=== PATIENT | female | born 1995 | race Caucasian/White ===

== ENCOUNTER → 2018-06-12 | Outpatient (CLI) | payer OTHER ==
[~2018-06-12] MED LIST: ANTIDEPRESSANT PO; BACTRIM DS 8001 TA1 PO; CLARITIN10 MG PO; FLONASE ALLERG9.9 ML NAS; MOTRIN400 MG PO; MOTRIN800 MG PO; NAPROSYN500 MG PO; NAPROXEN375 MG PO; NKHM; NORCO 325 MG-51 TAB PO; NORCO 5-325 TA1 EACH PO; PHENERGAN25 MG RC; PREDNISONE10 MG PO; PYRIDIUM200 MG PO; ROBITUSSIN AC 110 ML PO; ZANTAC150 MG PO; ZOFRAN ODT4 MG SL; ZOLOFT50 MG PO; Zofran4 MG PO
== END | disposition home or self-care (01) ==
LOC: RAD 16:04
DX: M54.9 Dorsalgia, unspecified (principal); M54.5 Low back pain

== ENCOUNTER 2018-11-25 18:47 | Emergency (ER) | payer OTHER ==
[~2018-11-25] VITALS: Ht 149.8 cm; Wt 46.3 kg
[2018-11-25 18:49] VITALS: BP 114/82
[2018-11-25 19:42] LABS: BASO # 0.1 10*3/uL (0.0-0.1); EOS % 0.5 % (1.0-4.0); HEMATOCRIT 40.1 % (37.0-47.0); HEMOGLOBIN 13.1 g/dl (12.0-16.0); LYMPH # 0.7 10*3/uL (1.3-4.4); LYMPH % 12.3 % (27.0-41.0); MEAN CELL VOLUME 90.3 fl (81.0-99.0); MEAN CORPUSCULAR HGB 29.5 pg (27.0-31.0); MEAN CORPUSCULAR HGB CONC 32.7 g/dl (33.0-37.0); MEAN PLATELET VOLUME 11.7 fl (9.6-12.3); MONO # 0.5 10*3/uL (0.1-1.0); MONO % 8.7 % (3.0-9.0); NEUT # 4.5 10*3/uL (2.3-7.9); NEUT % 77.2 % (47.0-73.0); PLATELET COUNT AUTOMATED 217 10*3/uL (130-400); RED BLOOD COUNT 4.44 10*6/uL (4.10-5.10); RED CELL DISTRI WIDTH 12.8 % (0-14.5); WHITE BLOOD COUNT 5.8 10*3/uL (4.8-10.8)
[2018-11-25 19:43] LABS: BILIRUBIN NEGATIVE (NEGATIVE); BLOOD TRACE-INTACT (NEGATIVE); CLARITY SL CLOUDY (CLEAR); COLOR YELLOW (YELLOW); GLUCOSE NEGATIVE (NEGATIVE); KETONE NEGATIVE (NEGATIVE); LEUKO ESTERASE 1+ (NEGATIVE); NITRITE NEGATIVE (NEGATIVE); SPECIFIC GRAVITY >= 1.030 (1.005-1.030)
[2018-11-25 19:55] LABS: BACTERIA 2+
[2018-11-25 19:58] LABS: ALKALINE PHOSPHATASE 64 U/L (45-117); BUN 10 mg/dl (7-24); CHLORIDE 110 mmol/L (98-107); CREATININE 0.73 mg/dL (0.55-1.02); LIPASE 343 U/L (73-393); POTASSIUM 3.3 mmol/L (3.5-5.1); SGOT/AST 11 IU/L (3-35); SGPT/ALT 22 U/L (12-78); SODIUM 142 mmol/L (136-145); TOTAL PROTEIN 7.7 gm/dL (6.4-8.2)
[2018-11-25] MEDS ORDERED: ZOFRAN4 MG PO (22:35)
[2019-01-05] MEDS ORDERED: ZOFRAN4 MG PO (11:57)
== END 2018-11-25 21:39 | disposition home or self-care (01) ==
LOC: ED 18:47
PROVIDERS: Physician Assistant
DX: K52.9 Noninfective gastroenteritis and colitis, unspecified (principal)

== ENCOUNTER 2019-07-05 17:03 | Emergency (ER) | payer OTHER ==
[~2019-07-05] VITALS: Ht 160 cm; Wt 48.1 kg
[~2019-07-05 17:03] MED LIST changes: +ZOFRAN4 MG PO
[2019-07-05 17:06] VITALS: BP 120/70
== END 2019-07-05 19:33 | disposition home or self-care (01) ==
LOC: ED 17:03
DX: S40.011A Contusion of right shoulder, initial encounter (principal); W01.0XXA Fall on same level from slipping, tripping and stumbling without subsequent striking against object, initial encounter; Y93.89 Activity, other specified; Y92.098 Other place in other non-institutional residence as the place of occurrence of the external cause; Y99.8 Other external cause status

== ENCOUNTER 2019-08-26 17:16 | Emergency (ER) | payer OTHER ==
[~2019-08-26] VITALS: Ht 154.9 cm; Wt 47.6 kg
[2019-08-26 17:18] VITALS: BP 113/83
[2019-08-26] MEDS ORDERED: ANAPROX DS550 MG PO (18:49)
== END 2019-08-26 18:59 | disposition home or self-care (01) ==
LOC: ED 17:16
DX: M76.52 Patellar tendinitis, left knee (principal); X50.1XXA Overexertion from prolonged static or awkward postures, initial encounter; Y93.89 Activity, other specified; Y92.89 Other specified places as the place of occurrence of the external cause; Y99.8 Other external cause status

== ENCOUNTER 2019-10-23 11:52 | Emergency (ER) | payer OTHER ==
[~2019-10-23] VITALS: Ht 162.5 cm; Wt 46.7 kg
[~2019-10-23 11:52] MED LIST changes: +ANAPROX DS550 MG PO
[2019-10-23 11:59] VITALS: BP 107/76
[2019-10-23] MEDS ORDERED: IBU800 MG PO (13:50)
== END 2019-10-23 14:00 | disposition home or self-care (01) ==
LOC: ED 11:52
DX: S43.401A Unspecified sprain of right shoulder joint, initial encounter (principal); S20.211A Contusion of right front wall of thorax, initial encounter; Z79.899 Other long term (current) drug therapy; W00.2XXA Other fall from one level to another due to ice and snow, initial encounter; Y93.89 Activity, other specified; Y92.89 Other specified places as the place of occurrence of the external cause; Y99.8 Other external cause status

== ENCOUNTER 2019-10-30 09:57 | Emergency (ER) | payer OTHER ==
[~2019-10-30] VITALS: Ht 160 cm; Wt 47.2 kg
[~2019-10-30 09:57] MED LIST changes: +IBU800 MG PO
[2019-10-30 10:01] VITALS: BP 101/81
[2019-10-30 10:30] LABS: BASO # 0.1 10*3/uL (0.0-0.1); BASO % 1.1 % (0.0-1.0); EOS # 0.1 10*3/uL (0.0-0.4); HEMATOCRIT 38.9 % (37.0-47.0); LYMPH # 2.2 10*3/uL (1.3-4.4); LYMPH % 47.6 % (27.0-41.0); MEAN CORPUSCULAR HGB 30.1 pg (27.0-31.0); MEAN CORPUSCULAR HGB CONC 33.4 g/dl (33.0-37.0); MEAN PLATELET VOLUME 11.2 fl (9.6-12.3); MONO # 0.4 10*3/uL (0.1-1.0); MONO % 9.1 % (3.0-9.0); NEUT # 1.8 10*3/uL (2.3-7.9); PLATELET COUNT AUTOMATED 219 10*3/uL (130-400); RED BLOOD COUNT 4.32 10*6/uL (4.10-5.10); RED CELL DISTRI WIDTH 12.6 % (0-14.5); WHITE BLOOD COUNT 4.6 10*3/uL (4.8-10.8)
[2019-10-30 10:48] LABS: ALKALINE PHOSPHATASE 51 U/L (45-117); BUN 11 mg/dl (7-24); CHLORIDE 112 mmol/L (98-107); CREATININE 0.89 mg/dL (0.55-1.02); LIPASE 237 U/L (73-393); POTASSIUM 3.7 mmol/L (3.5-5.1); SGOT/AST 12 IU/L (3-35); SGPT/ALT 16 U/L (12-78); SODIUM 141 mmol/L (136-145); TOTAL PROTEIN 7.2 gm/dL (6.4-8.2)
[2019-10-30 11:35] LABS: BILIRUBIN NEGATIVE (NEGATIVE); BLOOD NEGATIVE (NEGATIVE); CLARITY SL CLOUDY (CLEAR); COLOR YELLOW (YELLOW); GLUCOSE NEGATIVE (NEGATIVE); KETONE NEGATIVE (NEGATIVE); LEUKO ESTERASE 1+ (NEGATIVE); NITRITE NEGATIVE (NEGATIVE); PH 5.5 (5.0-9.0); SPECIFIC GRAVITY 1.015 (1.005-1.030); UROBILINOGEN 0.2 E.U./dl (0.2-1.0)
[2019-10-30 11:48] LABS: BACTERIA 3+
[2019-10-30] MEDS ORDERED: ZOFRAN4 MG PO (13:55)
== END 2019-10-30 13:59 | disposition home or self-care (01) ==
LOC: ED 09:57
PROVIDERS: Nurse Practitioner Family
DX: A08.4 Viral intestinal infection, unspecified (principal); R11.2 Nausea with vomiting, unspecified; R19.7 Diarrhea, unspecified; Z79.899 Other long term (current) drug therapy

== ENCOUNTER 2019-11-29 13:25 | Emergency (ER) | payer OTHER ==
[~2019-11-29] VITALS: Ht 162.5 cm; Wt 47.6 kg
[2019-11-29 13:38] VITALS: BP 116/84
[2019-11-29] MEDS ORDERED: IBUPROFEN600 MG PO (15:29)
== END 2019-11-29 15:30 | disposition home or self-care (01) ==
LOC: ED 13:25
DX: S40.011A Contusion of right shoulder, initial encounter (principal); W01.0XXA Fall on same level from slipping, tripping and stumbling without subsequent striking against object, initial encounter; Y93.89 Activity, other specified; Y92.89 Other specified places as the place of occurrence of the external cause; Y99.8 Other external cause status

== ENCOUNTER 2020-05-12 15:09 | Emergency (ER) | payer OTHER ==
[~2020-05-12] VITALS: Ht 160 cm; Wt 46.3 kg
[~2020-05-12 15:09] MED LIST changes: +IBUPROFEN600 MG PO
[2020-05-12 15:23] VITALS: BP 121/67
== END 2020-05-12 17:58 | disposition home or self-care (01) ==
LOC: ED 15:09
DX: S60.221A Contusion of right hand, initial encounter (principal); S20.211A Contusion of right front wall of thorax, initial encounter; W01.0XXA Fall on same level from slipping, tripping and stumbling without subsequent striking against object, initial encounter; Y93.89 Activity, other specified; Y92.89 Other specified places as the place of occurrence of the external cause; Y99.8 Other external cause status

== ENCOUNTER → 2020-06-26 | Outpatient (CLI) | payer OTHER ==
[2020-06-26 12:19] LABS: BASO # 0.1 10*3/uL (0.0-0.1); EOS # 0.1 10*3/uL (0.0-0.4); EOS % 1.6 % (1.0-4.0); HEMATOCRIT 37.4 % (37.0-47.0); LYMPH # 1.9 10*3/uL (1.3-4.4); LYMPH % 38.7 % (27.0-41.0); MEAN CORPUSCULAR HGB CONC 32.6 g/dl (33.0-37.0); MEAN PLATELET VOLUME 11.2 fl (9.6-12.3); MONO # 0.4 10*3/uL (0.1-1.0); MONO % 7.4 % (3.0-9.0); NEUT # 2.6 10*3/uL (2.3-7.9); NEUT % 50.9 % (47.0-73.0); PLATELET COUNT AUTOMATED 295 10*3/uL (130-400); RED CELL DISTRI WIDTH 13.3 % (0-14.5)
[2020-06-26 12:50] LABS: ALBUMIN 4.3 gm/dl (3.1-4.5); ALKALINE PHOSPHATASE 51 U/L (45-117); BUN 10 mg/dl (7-24); CHLORIDE 110 mmol/L (98-107); CHOLESTEROL 149 mg/dL (<200); CREATININE 0.78 mg/dL (0.55-1.02); FREE T4 0.97 ng/dl (0.76-1.46); HDL CHOLESTEROL 39 mg/dl (40-60); LDL CHOLESTEROL 88 mg/dL (9-159); POTASSIUM 3.6 mmol/L (3.5-5.1); SGOT/AST 11 IU/L (3-35); SGPT/ALT 22 U/L (12-78); SODIUM 139 mmol/L (136-145); TOTAL PROTEIN 7.7 gm/dL (6.4-8.2); TRIGLYCERIDES 111 mg/dl (<150); VLDL CHOLESTEROL 22 mg/dL (6-40)
== END | disposition home or self-care (01) ==
LOC: LAB 12:03
PROVIDERS: Internal Medicine
DX: D52.9 Folate deficiency anemia, unspecified (principal); D51.9 Vitamin B12 deficiency anemia, unspecified; R79.82 Elevated C-reactive protein (CRP); R79.89 Other specified abnormal findings of blood chemistry; R53.81 Other malaise; E55.9 Vitamin D deficiency, unspecified

== ENCOUNTER 2020-06-29 16:32 | Emergency (ER) | payer OTHER ==
[~2020-06-29] VITALS: Wt 47.2 kg
[2020-06-29 16:43] VITALS: BP 116/74
[2020-06-29 17:02] LABS: BASO # 0.1 10*3/uL (0.0-0.1); BASO % 0.8 % (0.0-1.0); EOS # 0.1 10*3/uL (0.0-0.4); EOS % 1.3 % (1.0-4.0); HEMATOCRIT 39.1 % (37.0-47.0); LYMPH % 33.7 % (27.0-41.0); MEAN CELL VOLUME 89.1 fl (81.0-99.0); MEAN CORPUSCULAR HGB 29.4 pg (27.0-31.0); MEAN PLATELET VOLUME 11.2 fl (9.6-12.3); MONO # 0.3 10*3/uL (0.1-1.0); MONO % 5.6 % (3.0-9.0); NEUT # 3.5 10*3/uL (2.3-7.9); NEUT % 58.4 % (47.0-73.0); PLATELET COUNT AUTOMATED 295 10*3/uL (130-400); RED BLOOD COUNT 4.39 10*6/uL (4.10-5.10); RED CELL DISTRI WIDTH 13.1 % (0-14.5)
[2020-06-29 17:21] LABS: ALBUMIN 4.9 gm/dl (3.1-4.5); ALKALINE PHOSPHATASE 55 U/L (45-117); BUN 12 mg/dl (7-24); CHLORIDE 110 mmol/L (98-107); CREATININE 0.85 mg/dL (0.55-1.02); LIPASE 181 U/L (73-393); POTASSIUM 3.1 mmol/L (3.5-5.1); SGOT/AST 13 IU/L (3-35); SGPT/ALT 27 U/L (12-78); SODIUM 137 mmol/L (136-145); TOTAL PROTEIN 8.3 gm/dL (6.4-8.2)
[2020-06-29] MEDS ORDERED: ZOFRAN4 MG PO (17:39)
[2020-06-29 19:12] LABS: CLARITY CLEAR (CLEAR); COLOR YELLOW (YELLOW)
[2020-06-29 19:14] LABS: BILIRUBIN NEGATIVE (NEGATIVE); BLOOD 1+ (NEGATIVE); GLUCOSE NEGATIVE (NEGATIVE); KETONE NEGATIVE (NEGATIVE); SPECIFIC GRAVITY 1.015 (1.005-1.030); UROBILINOGEN 0.2 E.U./dl (0.2-1.0)
[2020-06-29 19:16] LABS: LEUKO ESTERASE 1+ (NEGATIVE); NITRITE NEGATIVE (NEGATIVE)
[2020-06-29 19:36] LABS: BACTERIA 2+
[2020-06-29] MEDS ORDERED: KEFLEX500 M1 PO (19:57)
== END 2020-06-29 20:50 | disposition home or self-care (01) ==
LOC: ED 16:32
PROVIDERS: Nurse Practitioner Family
DX: N39.0 Urinary tract infection, site not specified (principal); E87.6 Hypokalemia; A08.4 Viral intestinal infection, unspecified; F32.9 Major depressive disorder, single episode, unspecified; Z79.899 Other long term (current) drug therapy

== ENCOUNTER 2020-10-02 11:43 | Emergency (ER) | payer OTHER ==
[~2020-10-02] VITALS: Ht 157.4 cm; Wt 47.6 kg
[~2020-10-02 11:43] MED LIST changes: +KEFLEX500 M1 PO
[2020-10-02 12:15] VITALS: BP 119/79
[2020-10-02 15:00] LABS: BASO % 0.5 % (0.0-1.0); EOS % 0.6 % (1.0-4.0); HEMATOCRIT 37.3 % (37.0-47.0); LYMPH # 1.5 10*3/uL (1.3-4.4); LYMPH % 24.3 % (27.0-41.0); MEAN CELL VOLUME 88.6 fl (81.0-99.0); MEAN CORPUSCULAR HGB 29.2 pg (27.0-31.0); MEAN PLATELET VOLUME 11.6 fl (9.6-12.3); MONO # 0.4 10*3/uL (0.1-1.0); MONO % 6.3 % (3.0-9.0); NEUT # 4.2 10*3/uL (2.3-7.9); PLATELET COUNT AUTOMATED 245 10*3/uL (130-400); RED BLOOD COUNT 4.21 10*6/uL (4.10-5.10); RED CELL DISTRI WIDTH 12.9 % (0-14.5); WHITE BLOOD COUNT 6.2 10*3/uL (4.8-10.8)
[2020-10-02 15:14] LABS: ACT PARTIAL THROMBO TIME 28.2 SECONDS (20.0-32.1); INTERNATIONAL NORM RATIO 1.1 (2.0-3.5)
[2020-10-02 15:15] LABS: ALBUMIN 4.2 gm/dl (3.1-4.5); ALKALINE PHOSPHATASE 51 U/L (45-117); BUN 9 mg/dl (7-24); CHLORIDE 115 mmol/L (98-107); CREATININE 0.73 mg/dL (0.55-1.02); LIPASE 239 U/L (73-393); POTASSIUM 3.4 mmol/L (3.5-5.1); SGOT/AST 13 IU/L (3-35); SGPT/ALT 15 U/L (12-78); SODIUM 141 mmol/L (136-145); TOTAL PROTEIN 7.9 gm/dL (6.4-8.2)
[2020-10-02 15:22] LABS: BETA-HCG, QUANT < 1.0 mIU/mL (1-3); TROPONIN I < 0.015 ng/ml (<0.045)
== END 2020-10-02 16:55 | disposition home or self-care (01) ==
LOC: ED 11:43
PROVIDERS: Emergency Medicine
DX: R00.2 Palpitations (principal); Z79.899 Other long term (current) drug therapy

== ENCOUNTER → 2021-06-25 | Outpatient (CLI) | payer OTHER ==
[~2021-06-25] MED LIST changes: +LIDEX 0.05% CRE15 GM T; +MEDROL DOSEPAK4 MG PO; +ZITHROMAX250 MG PO
[2021-06-25 14:45] LABS: BASO % 0.7 % (0.0-1.0); EOS # 0.1 10*3/uL (0.0-0.4); EOS % 1.4 % (1.0-4.0); HEMATOCRIT 38.4 % (37.0-47.0); LYMPH # 1.9 10*3/uL (1.3-4.4); LYMPH % 32.2 % (27.0-41.0); MEAN CELL VOLUME 87.9 fl (81.0-99.0); MEAN CORPUSCULAR HGB 28.8 pg (27.0-31.0); MEAN CORPUSCULAR HGB CONC 32.8 g/dl (33.0-37.0); MEAN PLATELET VOLUME 12.2 fl (9.6-12.3); MONO # 0.5 10*3/uL (0.1-1.0); MONO % 8.2 % (3.0-9.0); NEUT # 3.3 10*3/uL (2.3-7.9); NEUT % 57.2 % (47.0-73.0); PLATELET COUNT AUTOMATED 250 10*3/uL (130-400); RED BLOOD COUNT 4.37 10*6/uL (4.10-5.10); RED CELL DISTRI WIDTH 13.5 % (0-14.5); WHITE BLOOD COUNT 5.8 10*3/uL (4.8-10.8)
[2021-06-25 15:22] LABS: ALBUMIN 4.2 gm/dl (3.1-4.5); BUN 10 mg/dl (7-24); CHLORIDE 110 mmol/L (98-107); POTASSIUM 3.6 mmol/L (3.5-5.1); SODIUM 136 mmol/L (136-145)
[2021-06-25 15:31] LABS: ALKALINE PHOSPHATASE 53 U/L (45-117); CHOLESTEROL 141 mg/dL (<200); CREATININE 0.75 mg/dL (0.55-1.02); FREE T4 0.97 ng/dl (0.76-1.46); LDL CHOLESTEROL 86 mg/dL (9-159); SGOT/AST 10 IU/L (3-35); SGPT/ALT 14 U/L (12-78); TOTAL PROTEIN 7.5 gm/dL (6.4-8.2); TRIGLYCERIDES 65 mg/dl (<150)
== END | disposition home or self-care (01) ==
LOC: LAB 14:02
PROVIDERS: ATTEND Internal Medicine
DX: Z00.01 Encounter for general adult medical examination with abnormal findings (principal); T78.40XA Allergy, unspecified, initial encounter; E55.9 Vitamin D deficiency, unspecified; Z13.1 Encounter for screening for diabetes mellitus; Z13.21 Encounter for screening for nutritional disorder; Z13.220 Encounter for screening for lipoid disorders; X58.XXXA Exposure to other specified factors, initial encounter

== ENCOUNTER 2021-07-13 11:18 | Emergency (ER) | payer OTHER ==
[~2021-07-13] VITALS: Wt 46.7 kg
[~2021-07-13 11:18] MED LIST changes: -LIDEX 0.05% CRE15 GM T; -MEDROL DOSEPAK4 MG PO; -ZITHROMAX250 MG PO
[2021-07-13 11:35] VITALS: BP 114/79
[2021-07-13] MEDS ORDERED: MEDROL DOSEPAK4 MG PO (13:44)
[2021-07-13] MEDS ORDERED: LIDEX 0.05% CRE15 GM T (13:44)
[2021-07-13] MEDS ORDERED: ZITHROMAX250 MG PO (13:44)
== END 2021-07-13 13:55 | disposition home or self-care (01) ==
LOC: ED 11:18
DX: S22.42XA Multiple fractures of ribs, left side, initial encounter for closed fracture (principal); J18.9 Pneumonia, unspecified organism; R21 Rash and other nonspecific skin eruption; X58.XXXA Exposure to other specified factors, initial encounter; Y93.89 Activity, other specified; Y92.89 Other specified places as the place of occurrence of the external cause; Y99.8 Other external cause status

== ENCOUNTER 2021-07-27 15:17 | Emergency (ER) | payer OTHER ==
[~2021-07-27] VITALS: Ht 157.4 cm; Wt 47.6 kg
[~2021-07-27 15:17] MED LIST changes: +LIDEX 0.05% CRE15 GM T; +MEDROL DOSEPAK4 MG PO; +ZITHROMAX250 MG PO
[2021-07-27 15:52] VITALS: BP 123/71
== END 2021-07-27 20:30 | disposition left against medical advice (07) ==
LOC: ED 15:17
DX: M25.512 Pain in left shoulder (principal); Z53.21 Procedure and treatment not carried out due to patient leaving prior to being seen by health care provider

== ENCOUNTER 2021-10-30 12:23 | Emergency (ER) | payer OTHER ==
[~2021-10-30] VITALS: Ht 160 cm; Wt 46.7 kg
[2021-10-30 12:36] VITALS: BP 115/86
[2021-10-30] MEDS ORDERED: NAPROXEN250 MG PO (13:26)
[2021-10-30] MEDS ORDERED: TYLENOL325 M1 PO (13:26)
== END 2021-10-30 14:27 | disposition home or self-care (01) ==
LOC: ED 12:23
DX: R07.89 Other chest pain (principal); Z79.2 Long term (current) use of antibiotics

== ENCOUNTER 2022-03-12 21:02 | Emergency (ER) | payer OTHER ==
[~2022-03-12 21:02] MED LIST changes: +NAPROXEN250 MG PO; +TYLENOL325 M1 PO
[2022-03-12 21:12] VITALS: BP 131/81
[2022-03-12 21:41] LABS: BASO # 0.1 10*3/uL (0.0-0.1); BASO % 0.9 % (0.0-1.0); EOS # 0.1 10*3/uL (0.0-0.4); HEMATOCRIT 38.2 % (37.0-47.0); LYMPH # 1.9 10*3/uL (1.3-4.4); LYMPH % 32.9 % (27.0-41.0); MEAN CELL VOLUME 87.2 fl (81.0-99.0); MEAN CORPUSCULAR HGB CONC 33.2 g/dl (33.0-37.0); MEAN PLATELET VOLUME 11.5 fl (9.6-12.3); MONO # 0.5 10*3/uL (0.1-1.0); MONO % 8.9 % (3.0-9.0); NEUT # 3.2 10*3/uL (2.3-7.9); NEUT % 54.8 % (47.0-73.0); PLATELET COUNT AUTOMATED 257 10*3/uL (130-400); RED BLOOD COUNT 4.38 10*6/uL (4.10-5.10); RED CELL DISTRI WIDTH 12.9 % (0-14.5); WHITE BLOOD COUNT 5.9 10*3/uL (4.8-10.8)
[2022-03-12 21:57] LABS: ALKALINE PHOSPHATASE 60 U/L (45-117); BUN 14 mg/dl (7-24); CHLORIDE 112 mmol/L (98-107); CREATININE 0.75 mg/dL (0.55-1.02); POTASSIUM 3.6 mmol/L (3.5-5.1); SGOT/AST 9 IU/L (3-35); SGPT/ALT 18 U/L (12-78); SODIUM 140 mmol/L (136-145); TOTAL PROTEIN 7.4 gm/dL (6.4-8.2)
[2022-03-12] MEDS ORDERED: VIBRAMYCIN100 MG PO (22:59)
[2022-03-12] MEDS ORDERED: KENALOG 0.025%15 GM T (22:59)
== END 2022-03-12 23:17 | disposition home or self-care (01) ==
LOC: ED 21:02
PROVIDERS: Physician Assistant
DX: M25.561 Pain in right knee (principal); F17.200 Nicotine dependence, unspecified, uncomplicated; Z98.890 Other specified postprocedural states

== ENCOUNTER → 2022-04-07 | Outpatient (CLI) | payer OTHER ==
[~2022-04-07] MED LIST changes: +KENALOG 0.025%15 GM T; +VIBRAMYCIN100 MG PO
[2022-04-07 16:05] LABS: BASO # 0.1 10*3/uL (0.0-0.1); BASO % 1.1 % (0.0-1.0); EOS # 0.1 10*3/uL (0.0-0.4); EOS % 1.6 % (1.0-4.0); HEMATOCRIT 39.1 % (37.0-47.0); LYMPH # 1.8 10*3/uL (1.3-4.4); LYMPH % 31.9 % (27.0-41.0); MEAN CELL VOLUME 85.9 fl (81.0-99.0); MEAN CORPUSCULAR HGB CONC 33.8 g/dl (33.0-37.0); MEAN PLATELET VOLUME 11.2 fl (9.6-12.3); MONO # 0.5 10*3/uL (0.1-1.0); MONO % 8.3 % (3.0-9.0); NEUT # 3.2 10*3/uL (2.3-7.9); NEUT % 56.7 % (47.0-73.0); PLATELET COUNT AUTOMATED 262 10*3/uL (130-400); RED BLOOD COUNT 4.55 10*6/uL (4.10-5.10); RED CELL DISTRI WIDTH 13.2 % (0-14.5); WHITE BLOOD COUNT 5.6 10*3/uL (4.8-10.8)
[2022-04-07 16:23] LABS: ALKALINE PHOSPHATASE 53 U/L (45-117); BUN 14 mg/dl (7-24); CHLORIDE 111 mmol/L (98-107); CHOLESTEROL 142 mg/dL (<200); FREE T4 0.94 ng/dl (0.76-1.46); LDL CHOLESTEROL 78 mg/dL (9-159); POTASSIUM 3.9 mmol/L (3.5-5.1); SGOT/AST 10 IU/L (3-35); SGPT/ALT 18 U/L (12-78); SODIUM 138 mmol/L (136-145); T3 UPTAKE 35 % (31-39); TOTAL PROTEIN 7.2 gm/dL (6.4-8.2); TRIGLYCERIDES 91 mg/dl (<150)
== END | disposition home or self-care (01) ==
LOC: LAB 15:49
PROVIDERS: ATTEND Internal Medicine
DX: E55.9 Vitamin D deficiency, unspecified (principal); Z13.89 Encounter for screening for other disorder; Z13.29 Encounter for screening for other suspected endocrine disorder; Z23 Encounter for immunization; Z13.1 Encounter for screening for diabetes mellitus

== ENCOUNTER 2022-06-08 16:18 | Emergency (ER) | payer OTHER ==
[2022-06-08 16:34] VITALS: BP 119/76
[2022-06-08 16:52] LABS: BASO # 0.1 10*3/uL (0.0-0.1); BASO % 1.1 % (0.0-1.0); EOS # 0.1 10*3/uL (0.0-0.4); EOS % 1.1 % (1.0-4.0); HEMATOCRIT 38.6 % (37.0-47.0); LYMPH # 1.7 10*3/uL (1.3-4.4); LYMPH % 31.3 % (27.0-41.0); MEAN CELL VOLUME 87.3 fl (81.0-99.0); MEAN CORPUSCULAR HGB 29.2 pg (27.0-31.0); MEAN CORPUSCULAR HGB CONC 33.4 g/dl (33.0-37.0); MEAN PLATELET VOLUME 11.5 fl (9.6-12.3); MONO # 0.4 10*3/uL (0.1-1.0); MONO % 8.3 % (3.0-9.0); NEUT # 3.1 10*3/uL (2.3-7.9); NEUT % 57.8 % (47.0-73.0); PLATELET COUNT AUTOMATED 250 10*3/uL (130-400); RED BLOOD COUNT 4.42 10*6/uL (4.10-5.10); RED CELL DISTRI WIDTH 12.9 % (0-14.5); WHITE BLOOD COUNT 5.3 10*3/uL (4.8-10.8)
[2022-06-08 17:06] LABS: ALKALINE PHOSPHATASE 50 U/L (45-117); BUN 9 mg/dl (7-24); CHLORIDE 113 mmol/L (98-107); CREATININE 0.78 mg/dL (0.55-1.02); LIPASE 266 U/L (73-393); POTASSIUM 3.5 mmol/L (3.5-5.1); SGOT/AST 10 IU/L (3-35); SGPT/ALT 14 U/L (12-78); SODIUM 140 mmol/L (136-145); TOTAL PROTEIN 7.2 gm/dL (6.4-8.2)
== END 2022-06-08 18:47 | disposition home or self-care (01) ==
LOC: ED 16:18
PROVIDERS: Physician Assistant
DX: K52.9 Noninfective gastroenteritis and colitis, unspecified (principal); R11.2 Nausea with vomiting, unspecified; Z79.899 Other long term (current) drug therapy; Z79.2 Long term (current) use of antibiotics

== ENCOUNTER 2022-06-10 15:10 | Emergency (ER) | payer OTHER ==
[~2022-06-10] VITALS: Wt 47.2 kg
[2022-06-10 15:15] VITALS: BP 112/81
[2022-06-10 15:45] LABS: BASO # 0.1 10*3/uL (0.0-0.1); BASO % 1.3 % (0.0-1.0); EOS # 0.1 10*3/uL (0.0-0.4); EOS % 1.1 % (1.0-4.0); HEMATOCRIT 40.9 % (37.0-47.0); LYMPH # 1.5 10*3/uL (1.3-4.4); LYMPH % 30.6 % (27.0-41.0); MEAN CORPUSCULAR HGB 29.1 pg (27.0-31.0); MEAN CORPUSCULAR HGB CONC 33.5 g/dl (33.0-37.0); MEAN PLATELET VOLUME 11.6 fl (9.6-12.3); MONO # 0.4 10*3/uL (0.1-1.0); NEUT # 2.8 10*3/uL (2.3-7.9); NEUT % 58.8 % (47.0-73.0); PLATELET COUNT AUTOMATED 264 10*3/uL (130-400); RED CELL DISTRI WIDTH 12.6 % (0-14.5); WHITE BLOOD COUNT 4.7 10*3/uL (4.8-10.8)
[2022-06-10 16:08] LABS: ALKALINE PHOSPHATASE 57 U/L (45-117); BUN 10 mg/dl (7-24); CHLORIDE 113 mmol/L (98-107); CREATININE 0.91 mg/dL (0.55-1.02); LIPASE 207 U/L (73-393); POTASSIUM 3.4 mmol/L (3.5-5.1); SGOT/AST 11 IU/L (3-35); SGPT/ALT 12 U/L (12-78); SODIUM 140 mmol/L (136-145); TOTAL PROTEIN 7.9 gm/dL (6.4-8.2)
[2022-06-10 16:33] LABS: BILIRUBIN Negative (Negative); BLOOD 2+ (Negative); CLARITY Clear (Clear); COLOR Yellow (Yellow); GLUCOSE Negative (Negative); KETONE 1+ (Negative); LEUKO ESTERASE Trace (Negative); NITRITE Negative (Negative); PH 5.5 (4.5-8.0); SPECIFIC GRAVITY 1.025 (1.001-1.030)
[2022-06-10 17:04] LABS: BACTERIA 1+; EPITHELIAL CELLS 41-50; MUCOUS TRACE
[2022-06-10] MEDS ORDERED: Ondansetron4 MG PO (18:31)
[2022-06-10] MEDS ORDERED: CIPRO500 MG PO (19:38)
== END 2022-06-10 19:55 | disposition home or self-care (01) ==
LOC: ED 15:10
PROVIDERS: Emergency Medicine
DX: K82.8 Other specified diseases of gallbladder (principal); E87.6 Hypokalemia; R11.2 Nausea with vomiting, unspecified; Z79.899 Other long term (current) drug therapy; Z79.2 Long term (current) use of antibiotics

== ENCOUNTER 2022-08-01 15:35 | Emergency (ER) | payer OTHER ==
[~2022-08-01] VITALS: Ht 160 cm; Wt 45.4 kg
[~2022-08-01 15:35] MED LIST changes: +CIPRO500 MG PO; +Ondansetron4 MG PO
[2022-08-01 15:51] VITALS: BP 134/71
[2022-08-01 16:15] LABS: BASO % 0.8 % (0.0-1.0); EOS % 0.6 % (1.0-4.0); HEMATOCRIT 39.7 % (37.0-47.0); LYMPH # 0.6 10*3/uL (1.3-4.4); LYMPH % 11.7 % (27.0-41.0); MEAN CELL VOLUME 88.6 fl (81.0-99.0); MEAN CORPUSCULAR HGB 29.2 pg (27.0-31.0); MEAN PLATELET VOLUME 11.3 fl (9.6-12.3); MONO # 0.5 10*3/uL (0.1-1.0); MONO % 10.2 % (3.0-9.0); NEUT # 3.6 10*3/uL (2.3-7.9); NEUT % 76.3 % (47.0-73.0); PLATELET COUNT AUTOMATED 217 10*3/uL (130-400); RED BLOOD COUNT 4.48 10*6/uL (4.10-5.10); RED CELL DISTRI WIDTH 13.2 % (0-14.5); WHITE BLOOD COUNT 4.7 10*3/uL (4.8-10.8)
[2022-08-01 16:28] LABS: BILIRUBIN Negative (Negative); BLOOD Negative (Negative); CLARITY Clear (Clear); COLOR Yellow (Yellow); GLUCOSE Negative (Negative); KETONE Negative (Negative); LEUKO ESTERASE 2+ (Negative); NITRITE Negative (Negative); PH 5.5 (4.5-8.0); UROBILINOGEN 0.2 E.U./dl (0.0-1.0)
[2022-08-01 16:31] LABS: ALKALINE PHOSPHATASE 59 U/L (45-117); BUN 7 mg/dl (7-24); CHLORIDE 115 mmol/L (98-107); POTASSIUM 3.7 mmol/L (3.5-5.1); SGOT/AST 12 IU/L (3-35); SGPT/ALT 20 U/L (12-78); SODIUM 141 mmol/L (136-145); TOTAL PROTEIN 7.8 gm/dL (6.4-8.2)
[2022-08-01 16:52] LABS: BACTERIA 3+; EPITHELIAL CELLS 0-2
[2022-08-01] MEDS ORDERED: PROVENTIL HFA6.7 GM INH (19:07)
[2022-08-01] MEDS ORDERED: PREDNISONE20 M1 PO (19:07)
[2022-08-01] MEDS ORDERED: MUCINEX DM 30/61 TAB PO (19:07)
== END 2022-08-01 19:15 | disposition home or self-care (01) ==
LOC: ED 15:35
PROVIDERS: Emergency Medicine
DX: U07.1 COVID-19 (principal); J45.901 Unspecified asthma with (acute) exacerbation; Z79.2 Long term (current) use of antibiotics; Z79.899 Other long term (current) drug therapy

== ENCOUNTER 2022-08-29 16:03 | Emergency (ER) | payer OTHER ==
[~2022-08-29] VITALS: Ht 162.5 cm; Wt 48.5 kg
[~2022-08-29 16:03] MED LIST changes: +MUCINEX DM 30/61 TAB PO; +PREDNISONE20 M1 PO; +PROVENTIL HFA6.7 GM INH
[2022-08-29 16:54] VITALS: BP 127/79
[2022-08-29] MEDS ORDERED: NAPROSYN500 MG PO (22:17)
== END 2022-08-29 22:18 | disposition home or self-care (01) ==
LOC: ED 16:03
DX: M79.672 Pain in left foot (principal); Z79.2 Long term (current) use of antibiotics; W18.30XA Fall on same level, unspecified, initial encounter; Y93.01 Activity, walking, marching and hiking; Y92.89 Other specified places as the place of occurrence of the external cause; Y99.9 Unspecified external cause status

== ENCOUNTER → 2022-11-24 | Outpatient (CLI) | payer OTHER | END | disposition home or self-care (01) | LOC: MRI 01:08 | PROVIDERS: ATTEND Orthopaedic Surgery | DX: S90.02XA Contusion of left ankle, initial encounter (principal); M25.472 Effusion, left ankle; M67.472 Ganglion, left ankle and foot; M72.2 Plantar fascial fibromatosis; M76.62 Achilles tendinitis, left leg; X58.XXXA Exposure to other specified factors, initial encounter; Y93.89 Activity, other specified; Y92.89 Other specified places as the place of occurrence of the external cause; Y99.8 Other external cause status ==

== ENCOUNTER 2022-12-22 10:28 | Emergency (ER) | payer OTHER ==
[~2022-12-22] VITALS: Ht 154.9 cm; Wt 48.5 kg
[2022-12-22 10:40] VITALS: BP 114/91
== END 2022-12-22 13:24 | disposition home or self-care (01) ==
LOC: ED 10:28
DX: M79.662 Pain in left lower leg (principal)

== ENCOUNTER 2023-01-10 12:21 | Emergency (ER) | payer OTHER ==
[~2023-01-10] VITALS: Ht 162.5 cm; Wt 47.6 kg
[2023-01-10 12:27] VITALS: BP 111/93
[2023-01-10 13:07] LABS: BASO # 0.1 10*3/uL (0.0-0.1); BASO % 1.4 % (0.0-1.0); EOS # 0.1 10*3/uL (0.0-0.4); EOS % 1.9 % (1.0-4.0); HEMATOCRIT 41.2 % (37.0-47.0); LYMPH # 1.6 10*3/uL (1.3-4.4); LYMPH % 38.9 % (27.0-41.0); MEAN CELL VOLUME 86.6 fl (81.0-99.0); MEAN CORPUSCULAR HGB 28.8 pg (27.0-31.0); MEAN CORPUSCULAR HGB CONC 33.3 g/dl (33.0-37.0); MEAN PLATELET VOLUME 11.4 fl (9.6-12.3); MONO # 0.3 10*3/uL (0.1-1.0); MONO % 7.1 % (3.0-9.0); NEUT # 2.1 10*3/uL (2.3-7.9); NEUT % 50.2 % (47.0-73.0); PLATELET COUNT AUTOMATED 279 10*3/uL (130-400); RED BLOOD COUNT 4.76 10*6/uL (4.10-5.10); RED CELL DISTRI WIDTH 12.8 % (0-14.5); WHITE BLOOD COUNT 4.2 10*3/uL (4.8-10.8)
[2023-01-10 13:23] LABS: ALKALINE PHOSPHATASE 55 U/L (46-116); BUN 7 mg/dl (9-23); CHLORIDE 109 mmol/L (98-107); LIPASE 58 U/L (12-53); POTASSIUM 3.4 mmol/L (3.4-5.1); SGPT/ALT 8 U/L (10-49); TOTAL PROTEIN 7.6 gm/dL (6.0-8.0)
[2023-01-10 15:52] LABS: BILIRUBIN Negative (Negative); BLOOD Negative (Negative); CLARITY Cloudy (Clear); COLOR Yellow (Yellow); GLUCOSE Negative (Negative); KETONE Negative (Negative); LEUKO ESTERASE 2+ (Negative); NITRITE Negative (Negative)
[2023-01-10 16:03] LABS: BACTERIA 2+; WBC 21-30 wbc/hpf (0-5)
[2023-01-10] MEDS ORDERED: ONDANSETRON4 MG SL (16:52)
[2023-01-10] MEDS ORDERED: MACROBID100 M1 PO (16:52)
== END 2023-01-10 16:58 | disposition home or self-care (01) ==
LOC: ED 12:21
PROVIDERS: Physician Assistant
DX: N39.0 Urinary tract infection, site not specified (principal); K52.9 Noninfective gastroenteritis and colitis, unspecified; F32.A Depression, unspecified; Z98.890 Other specified postprocedural states

== ENCOUNTER 2023-04-13 16:03 | Emergency (ER) | payer OTHER ==
[~2023-04-13] VITALS: Ht 160 cm; Wt 48.1 kg
[~2023-04-13 16:03] MED LIST changes: +MACROBID100 M1 PO; +ONDANSETRON4 MG SL
[2023-04-13 17:21] VITALS: BP 124/91
[2023-04-13] MEDS ORDERED: NAPROSYN500 MG PO (18:48)
== END 2023-04-13 19:01 | disposition home or self-care (01) ==
LOC: ED 16:03
DX: M19.011 Primary osteoarthritis, right shoulder (principal); F32.A Depression, unspecified; F90.9 Attention-deficit hyperactivity disorder, unspecified type; Z98.890 Other specified postprocedural states

== ENCOUNTER → 2023-04-28 | Outpatient (CLI) | payer OTHER ==
[2023-04-28 16:27] LABS: BASO # 0.1 10*3/uL (0.0-0.1); BASO % 0.8 % (0.0-1.0); EOS # 0.1 10*3/uL (0.0-0.4); EOS % 1.5 % (1.0-4.0); HEMATOCRIT 39.4 % (37.0-47.0); LYMPH # 2.1 10*3/uL (1.3-4.4); LYMPH % 27.8 % (27.0-41.0); MEAN CELL VOLUME 87.8 fl (81.0-99.0); MEAN PLATELET VOLUME 11.3 fl (9.6-12.3); MONO # 0.5 10*3/uL (0.1-1.0); MONO % 6.7 % (3.0-9.0); NEUT # 4.8 10*3/uL (2.3-7.9); NEUT % 62.9 % (47.0-73.0); PLATELET COUNT AUTOMATED 311 10*3/uL (130-400); RED BLOOD COUNT 4.49 10*6/uL (4.10-5.10); RED CELL DISTRI WIDTH 13.2 % (0-14.5); WHITE BLOOD COUNT 7.6 10*3/uL (4.8-10.8)
[2023-04-28 17:04] LABS: VITAMIN D, 25-HYDROXY 29.1 ng/mL (30-100)
[2023-04-28 17:05] LABS: ALKALINE PHOSPHATASE 63 U/L (46-116); BUN 12 mg/dl (9-23); CHLORIDE 111 mmol/L (98-107); CHOLESTEROL 143 mg/dL (<200); FREE T4 1.12 ng/dl (0.89-1.76); LDL CHOLESTEROL 83 mg/dL (9-159); POTASSIUM 3.9 mmol/L (3.4-5.1); SGPT/ALT 7 U/L (10-49); THYROID STIM HORMONE (HS) 2.206 uIU/ml (0.550-4.780); TOTAL PROTEIN 7.2 gm/dL (6.0-8.0); TRIGLYCERIDES 79 mg/dl (<150)
== END | disposition home or self-care (01) ==
LOC: LAB 16:13
PROVIDERS: ATTEND Internal Medicine
DX: J45.40 Moderate persistent asthma, uncomplicated (principal); J30.1 Allergic rhinitis due to pollen; E55.9 Vitamin D deficiency, unspecified; G44.229 Chronic tension-type headache, not intractable

== ENCOUNTER 2023-06-15 11:50 | Emergency (ER) | payer OTHER ==
[~2023-06-15] VITALS: Wt 47.6 kg
[2023-06-15] MEDS ORDERED: FLUTICASONE-SA1 EAC5 INH (12:06)
[2023-06-15] MEDS ORDERED: GOOD NEIGHBOR L10 MG PO (12:07)
[2023-06-15] MEDS ORDERED: MONTELUKAST SOD10 MG PO (12:07)
[2023-06-15] MEDS ORDERED: NAPROSYN500 MG PO (12:58)
[2023-06-15 13:11] VITALS: BP 100/70
== END 2023-06-15 13:04 | disposition home or self-care (01) ==
LOC: ED 11:50
DX: M25.511 Pain in right shoulder (principal); Z79.899 Other long term (current) drug therapy

== ENCOUNTER → 2023-12-08 | Outpatient (CLI) | payer OTHER ==
[~2023-12-08] MED LIST changes: +FLUTICASONE-SA1 EAC5 INH; +GOOD NEIGHBOR L10 MG PO; +MONTELUKAST SOD10 MG PO
== END | disposition home or self-care (01) ==
LOC: ORTHO 03:02
PROVIDERS: ATTEND Orthopaedic Surgery
DX: M25.561 Pain in right knee (principal)

== ENCOUNTER 2024-05-14 22:25 | Emergency (ER) | payer OTHER ==
[~2024-05-14] VITALS: Ht 157.4 cm; Wt 46.3 kg
[2024-05-14 22:32] VITALS: BP 126/90
[2024-05-14] MEDS ORDERED: CEPHALEXIN 500 MG CAP PO ONE (22:45)
[2024-05-14] MEDS ORDERED: CEPHALEXIN500 M1 PO (22:46)
== END 2024-05-14 22:54 | disposition home or self-care (01) ==
LOC: ED 22:25
DX: T63.441A Toxic effect of venom of bees, accidental (unintentional), initial encounter (principal); L53.0 Toxic erythema; L03.116 Cellulitis of left lower limb; Y92.89 Other specified places as the place of occurrence of the external cause

== ENCOUNTER 2024-10-12 17:07 | Emergency (ER) | payer OTHER ==
[~2024-10-12] VITALS: Ht 160 cm; Wt 47.2 kg
[~2024-10-12 17:07] MED LIST changes: +CEPHALEXIN500 M1 PO
[2024-10-12] MEDS ORDERED: CLARITIN10 MG PO (17:18)
[2024-10-12] MEDS ORDERED: Ketorolac Tromethamine 15 MG/ML VIAL IV ONE (17:25)
[2024-10-12] MEDS ORDERED: Prochlorperazine Edisylate 10 MG/2 ML VIAL IV ONE (17:25)
[2024-10-12] MEDS ORDERED: SODIUM CHLORIDE 0.9% 1,000 ML IV ONE (17:25)
[2024-10-12] MEDS ORDERED: diphenhydrAMINE hydrochloride 50 MG/ML VIAL IV ONE (17:25)
[2024-10-12 17:35] LABS: BASO % 0.7 % (0.0-1.0); EOS # 0.1 10*3/uL (0.0-0.4); EOS % 1.9 % (1.0-4.0); HEMATOCRIT 38.7 % (37.0-47.0); MEAN CELL VOLUME 87.4 fl (81.0-99.0); MEAN CORPUSCULAR HGB 28.9 pg (27.0-31.0); MEAN CORPUSCULAR HGB CONC 33.1 g/dl (33.0-37.0); MEAN PLATELET VOLUME 11.5 fl (9.6-12.3); MONO # 0.6 10*3/uL (0.1-1.0); MONO % 10.2 % (3.0-9.0); NEUT # 2.6 10*3/uL (2.3-7.9); NEUT % 47.7 % (47.0-73.0); PLATELET COUNT AUTOMATED 270 10*3/uL (130-400); RED BLOOD COUNT 4.43 10*6/uL (4.10-5.10); RED CELL DISTRI WIDTH 13.1 % (0-14.5); WHITE BLOOD COUNT 5.4 10*3/uL (4.8-10.8)
[2024-10-12 17:52] LABS: BUN 5 mg/dl (9-23); CHLORIDE 109 mmol/L (98-107); POTASSIUM 3.6 mmol/L (3.4-5.1)
[2024-10-12] MEDS ORDERED: PEPCID20 MG PO (18:28)
[2024-10-12] MEDS ORDERED: COMPAZINE10 M1 PO (18:28)
[2024-10-12 18:50] VITALS: BP 108/77
== END 2024-10-12 18:54 | disposition home or self-care (01) ==
LOC: ED 17:07
PROVIDERS: Emergency Medicine
DX: R07.2 Precordial pain (principal); R11.2 Nausea with vomiting, unspecified; Z79.899 Other long term (current) drug therapy

== ENCOUNTER 2024-11-14 12:28 | Emergency (ER) | payer OTHER ==
[~2024-11-14] VITALS: Ht 160 cm; Wt 47.6 kg
[~2024-11-14 12:28] MED LIST changes: +COMPAZINE10 M1 PO; +PEPCID20 MG PO
[2024-11-14 12:42] VITALS: BP 109/89
[2024-11-14] MEDS ORDERED: Acetaminophen/Hydrocodone 5 MG/325 MG TABLET PO ONE (14:45)
== END 2024-11-14 14:59 | disposition home or self-care (01) ==
LOC: ED 12:28
DX: M25.512 Pain in left shoulder (principal); M25.522 Pain in left elbow; F32.A Depression, unspecified; F90.9 Attention-deficit hyperactivity disorder, unspecified type; Z98.890 Other specified postprocedural states; W19.XXXA Unspecified fall, initial encounter

== ENCOUNTER → 2025-01-22 | Outpatient (CLI) | payer OTHER ==
[2025-01-22 10:28] LABS: BASO # 0.1 10*3/uL (0.0-0.1); BASO % 1.1 % (0.0-1.0); EOS # 0.1 10*3/uL (0.0-0.4); EOS % 2.1 % (1.0-4.0); HEMATOCRIT 38.1 % (37.0-47.0); MEAN CORPUSCULAR HGB 28.8 pg (27.0-31.0); MEAN CORPUSCULAR HGB CONC 33.1 g/dl (33.0-37.0); MEAN PLATELET VOLUME 11.8 fl (9.6-12.3); MONO # 0.5 10*3/uL (0.1-1.0); MONO % 7.9 % (3.0-9.0); NEUT # 3.2 10*3/uL (2.3-7.9); NEUT % 53.1 % (47.0-73.0); PLATELET COUNT AUTOMATED 244 10*3/uL (130-400); RED BLOOD COUNT 4.38 10*6/uL (4.10-5.10); RED CELL DISTRI WIDTH 14.2 % (0-14.5); WHITE BLOOD COUNT 6.1 10*3/uL (4.8-10.8)
[2025-01-22 10:58] LABS: ALKALINE PHOSPHATASE 54 U/L (46-116); BUN 9 mg/dl (9-23); CHLORIDE 112 mmol/L (98-107); CHOLESTEROL 145 mg/dL (<200); FREE T4 1.47 ng/dl (0.89-1.76); LDL CHOLESTEROL 92 mg/dL (9-159); POTASSIUM 3.3 mmol/L (3.4-5.1); TOTAL PROTEIN 7.2 gm/dL (6.0-8.0); TRIGLYCERIDES 55 mg/dl (<150); VITAMIN D, 25-HYDROXY 32.9 ng/mL (30-100)
[2025-01-22 11:20] LABS: SGPT/ALT < 7 U/L (5-49)
== END | disposition home or self-care (01) ==
LOC: LAB 02:02 → US 10:00
PROVIDERS: ATTEND Internal Medicine
DX: N28.1 Cyst of kidney, acquired (principal); R10.9 Unspecified abdominal pain; E55.9 Vitamin D deficiency, unspecified; R53.83 Other fatigue; E53.9 Vitamin B deficiency, unspecified; Z13.0 Encounter for screening for diseases of the blood and blood-forming organs and certain disorders involving the immune mechanism; Z13.1 Encounter for screening for diabetes mellitus; Z13.21 Encounter for screening for nutritional disorder; Z13.228 Encounter for screening for other metabolic disorders; Z13.29 Encounter for screening for other suspected endocrine disorder; Z13.6 Encounter for screening for cardiovascular disorders

== ENCOUNTER → 2025-06-10 | Outpatient (CLI) | payer OTHER ==
[2025-06-10 14:51] LABS: BUN 7 mg/dl (9-23); FREE T4 1.48 ng/dl (0.89-1.76)
== END | disposition home or self-care (01) ==
LOC: LAB 13:54
PROVIDERS: ATTEND Internal Medicine
DX: I10 Essential (primary) hypertension (principal); E07.9 Disorder of thyroid, unspecified

== ENCOUNTER → 2025-10-27 | Outpatient (CLI) | payer OTHER ==
[2025-10-27 16:19] LABS: BASO # 0.1 10*3/uL (0.0-0.1); BASO % 1.1 % (0.0-1.0); EOS # 0.1 10*3/uL (0.0-0.4); EOS % 1.1 % (1.0-4.0); MEAN CELL VOLUME 87.4 fl (81.0-99.0); MEAN CORPUSCULAR HGB 28.8 pg (27.0-31.0); MEAN PLATELET VOLUME 11.4 fl (9.6-12.3); MONO # 0.5 10*3/uL (0.1-1.0); MONO % 8.4 % (3.0-9.0); NEUT # 3.5 10*3/uL (2.3-7.9); NEUT % 61.9 % (47.0-73.0); NUCLEATED RED BLOOD CELL 0.0 % (0.0-0.0); NUCLEATED RED BLOOD CELL 0.0 10*3/uL (0.0-0.0); PLATELET COUNT AUTOMATED 268 10*3/uL (130-400); RED CELL DISTRI WIDTH 13.7 % (0-14.5)
[2025-10-27 16:59] LABS: BUN 9 mg/dl (9-23); FREE T4 1.53 ng/dl (0.89-1.76); LDL CHOLESTEROL 96 mg/dL (9-159); VITAMIN D, 25-HYDROXY 30.3 ng/mL (30-100)
[2025-10-27 17:02] LABS: SGPT/ALT < 7 U/L (5-49)
== END | disposition home or self-care (01) ==
LOC: LAB 15:54
PROVIDERS: ATTEND Internal Medicine
DX: E03.9 Hypothyroidism, unspecified (principal); E55.9 Vitamin D deficiency, unspecified; N17.9 Acute kidney failure, unspecified; Z13.0 Encounter for screening for diseases of the blood and blood-forming organs and certain disorders involving the immune mechanism; Z13.1 Encounter for screening for diabetes mellitus; Z13.21 Encounter for screening for nutritional disorder; Z13.220 Encounter for screening for lipoid disorders; Z13.228 Encounter for screening for other metabolic disorders; Z13.29 Encounter for screening for other suspected endocrine disorder; Z13.6 Encounter for screening for cardiovascular disorders; Z13.89 Encounter for screening for other disorder; Z13.9 Encounter for screening, unspecified